=== PATIENT | male | born 1990 | race African-American/Black ===

== ENCOUNTER 2019-10-30 13:54 | Emergency (ER) | payer OTHER ==
[~2019-10-30] VITALS: Ht 188 cm; Wt 79.4 kg
--- NOTE | 2019-10-30 13:55 | NUR ---
ED Nurse Note: pt walked in to ed for c/o sob x 2 weeks. sp02 96% in room air. denies cough. hr is 125 temp 98.4
[2019-10-30 13:56] VITALS: BP 116/66
--- NOTE | 2019-10-30 14:45 | NUR ---
ED Nurse Note: cxr being done at tent
--- NOTE | 2019-10-30 15:22 | NUR ---
ED Nurse Note: blood sample collected and sent to lab
--- NOTE | 2019-10-30 15:34 | NUR ---
ED Nurse Note: pt is sitting in chair, no acute distress is noted.
--- NOTE | 2019-10-30 15:56 | Emergency Room Report ---
History of Present Illness General Chief Complaint: Dyspnea/Respdistress Source: Patient Present Illness HPI 29-year-old male presents to the emergency department complaining of feeling short of breath x2 weeks. Patient describes his symptoms primarily in the throat and describes having feeling of throat swelling. Patient reports in the past he has had numerous episodes of tonsillitis to the point where he was recommended to have them removed. Patient denies fevers, chills, cough, wheezing or sore throat. Patient denies swelling of the lips or tongue. He denies rashes. Patient reports he notices his symptoms primarily at night. He denies mucus production. Patient denies inability to tolerate his own secretions or swallow food. Patient denies any other aggravating or relieving factors. Denies CP, Palpitations, LOC, AMS, dizziness, Changes in Vision, Sensation, paresthesias, or a sudden severe headache. Denies asthma or COPD. reports smoking THC regularly but none today. Denies recent travel. Denies contact with persons who have tested positive for or are under investigation/ quarantine for COVID-19. Allergies: Coded Allergies: No Known Allergies (Unverified , 10/30/19) COVID-19 Screening Contact w/high risk pt: No Recent Travel to affected area: No Experienced COVID-19 symptoms?: Yes COVID-19 symptoms experienced: Shortness of Breath COVID-19 Testing performed REGISTERED NURSE CARDIAC: No Patient History Past Medical History: see triage record Past Surgical History: none Pertinent Family History: none Social History: Reports: smoking - THC, drug use - THC Reviewed Nursing Documentation: PMH: Agreed; PSxH: Agreed Nursing Documentation-PMH Past Medical History: No Stated History Review of Systems All Other Systems: negative except mentioned in HPI Physical Exam Vital Signs Date Time Temp Pulse Resp B/P (MAP) Pulse Ox O2 Delivery O2 Flow Rate FiO2 10/30/19 13:49 98.4 125 19 116/66 (83) 96 Room Air Sp02 EP Interpretation: reviewed, normal General Appearance: well appearing, no apparent distress - does not appear anxious or with increased respiratory effort., alert, GCS 15, non-toxic Head: normocephalic, atraumatic Eyes: bilateral eye normal inspection, bilateral eye PERRL ENT: hearing grossly normal, normal pharynx, no angioedema, normal voice, uvula midline, tonsillar swelling - no exudates, no erythema or petechiae, other - no swelling of the lips or tongue Neck: full range of motion, other - no stridor Respiratory: chest non-tender, lungs clear, normal breath sounds, no respiratory distress, no accessory muscle use, no wheezing, speaking full sentences Cardiovascular #1: regular rate, rhythm, normal capillary refill, tachycardia Musculoskeletal: back normal, normal range of motion, gait/station normal, non- tender Neurologic: alert, motor strength/tone normal, oriented x3, sensory intact, responsive, speech normal Psychiatric: judgement/insight normal Skin: normal color, normal inspection Lymphatic: no adenopathy Medical Decision Making PA Attestation Dr. Loya is my supervising Physician whom patient management has been discussed with. Diagnostic Impression: Primary Impression: Throat discomfort Additional Impressions: Tachycardia Shortness of breath ER Course 29-year-old male presents to the emergency department complaining of feeling short of breath x2 weeks. Patient describes his symptoms primarily in the throat and describes having feeling of throat swelling. Patient reports in the past he has had numerous episodes of tonsillitis to the point where he was recommended to have them removed. Patient denies fevers, chills, cough, wheezing or sore throat. Patient denies swelling of the lips or tongue. He denies rashes. Patient reports he notices his symptoms primarily at night. He denies mucus production. Patient denies inability to tolerate his own secretions or swallow food. Patient denies any other aggravating or relieving factors. Denies CP, Palpitations, LOC, AMS, dizziness, Changes in Vision, Sensation, paresthesias, or a sudden severe headache. Denies asthma or COPD. reports smoking THC regularly but none today. Denies recent travel. Denies contact with persons who have tested positive for or are under investigation/ quarantine for COVID-19. Ddx considered but are not limited to IN, PE, atelectasis, CHF, asthma, anxiety , Bronchitis, allergic reaction, epiglottitis, throat FB, COVID-19,hyper- ventilation syndrome, pneumonia, costochondritis, chest wall pain, just to name a few. Vital signs: are WNL, pt. is afebrile H&PE are most consistent with No acute pulmonary or cardiac causes at this time patient is in no acute distress his oxygen saturation is 94%. The patient is not in any respiratory distress at this time ORDERS: -EKG: Sinus Tach: 127 BPM beats per minute, no acute ST changes -D-Dimer: Negative - CBC: WNL , no elevated wbc's. -BMP: WNL -Troponin: 0.00 ED INTERVENTIONS: -Prednisone 60mg PO DISCHARGE: At this time pt. is stable for d/c to home. s. Will provide printed patient care instructions, and any necessary prescriptions. Care plan and follow up instructions have been discussed with the patient prior to discharge. Labs Test 10/30/19 15:13 10/30/19 16:12 D-Dimer 0.30 mg/L FEU (0.00-0.49) White Blood Count 2.8 K/UL (4.8-10.8) Red Blood Count 4.15 M/UL (4.70-6.10) Hemoglobin 11.9 G/DL (14.2-18.0) Hematocrit 37.6 % (42.0-52.0) Mean Corpuscular Volume 90 FL (80-99) Mean Corpuscular Hemoglobin 28.7 PG (27.0-31.0) Mean Corpuscular Hemoglobin Concent 31.8 G/DL (32.0-36.0) Red Cell Distribution Width 12.4 % (11.6-14.8) Platelet Count 223 K/UL (150-450) Mean Platelet Volume 8.0 FL (6.5-10.1) Neutrophils (%) (Auto) % (45.0-75.0) Lymphocytes (%) (Auto) % (20.0-45.0) Monocytes (%) (Auto) % (1.0-10.0) Eosinophils (%) (Auto) % (0.0-3.0) Basophils (%) (Auto) % (0.0-2.0) Differential Total Cells Counted 100 Neutrophils % (Manual) 45 % (45-75) Lymphocytes % (Manual) 33 % (20-45) Monocytes % (Manual) 18 % (1-10) Eosinophils % (Manual) 4 % (0-3) Basophils % (Manual) 0 % (0-2) Band Neutrophils 0 % (0-8) Platelet Estimate Adequate Platelet Morphology Normal Red Blood Cell Morphology Normal Prothrombin Time 11.9 SEC (9.30-11.50) Prothromb Time International Ratio 1.1 (0.9-1.1) Activated Partial Thromboplast Time 27 SEC (23-33) Sodium Level 138 MMOL/L (136-145) Potassium Level 4.3 MMOL/L (3.5-5.1) Chloride Level 102 MMOL/L (98-107) Carbon Dioxide Level 29 MMOL/L (21-32) Anion Gap 8 mmol/L (5-15) Blood Urea Nitrogen 8 mg/dL (7-18) Creatinine 1.0 MG/DL (0.55-1.30) Estimat Glomerular Filtration Rate > 60 mL/min (>60) Glucose Level 105 MG/DL (74-106) Calcium Level 9.1 MG/DL (8.5-10.1) Troponin I 0.000 ng/mL (0.000-0.056) EKG Diagnostic Results EP Interpretation: Dr. Loya Rate: tachycardiac - 127 bpm Rhythm: NSR ST Segments: no acute changes ASA given to the pt in ED: No PA Scribe Text This Interpretation was scribed by NAKUL Jean. Chest X-Ray Diagnostic Results Chest X-Ray Diagnostic Results : Chest X-Ray Ordered: Yes # of Views/Limited/Complete: 1 View Indication: Shortness of Breath EP Interpretation: Yes PA Xray: Interpretation reviewed, by supervising MD, and agrees with findings. Interpretation: no consolidation, no effusion, no pneumothorax, no acute cardiopulmonary disease Impression: No acute disease Electronically Signed by: Mila Jean PA-C Last Vital Signs Date Time Temp Pulse Resp B/P (MAP) Pulse Ox O2 Delivery O2 Flow Rate FiO2 10/30/19 14:59 116 18 94 Room Air 10/30/19 13:56 98.4 116/66 Disposition: HOME, SELF-CARE Scripts Naproxen* (NAPROXEN*) 500 Mg Tablet 500 MG ORAL TWICE A WEEK for 10 Days, #20 TAB 0 Refills Prov: Mila Jean 10/30/19 Prednisone* (PREDNISONE*) 20 Mg Tablet 20 MG ORAL DAILY for 3 Days, #3 TAB 0 Refills Prov: Mila Jean 10/30/19 Referrals: NON PHYSICIAN (PCP) Patient Instructions: Medical Screening Exam, Shortness of Breath, [id number] Mila Jean October 30, 2019 15:56
--- NOTE | 2019-10-30 16:15 | Diagnostic Imaging Report ---
Indication: Shortness of breath Technique: XRAY Chest 1v Comparison: None Findings: Heart size and mediastinal contours are within normal limits for AP technique. There is no focal airspace consolidation, pneumothorax or pleural effusion. Osseous structures demonstrate no acute abnormality. Impression: No radiographic evidence of acute cardiopulmonary disease.
--- NOTE | 2019-10-30 16:21 | NUR ---
ED Nurse Note: additional blood sample sent to lab.
[2019-10-30 16:35] LABS: HEMATOCRIT 37.6 % (42.0-52.0); HEMOGLOBIN 11.9 G/DL (14.2-18.0); MEAN CORPUSCULAR VOLUME 90 FL (80-99); PLATELET COUNT 223 K/UL (150-450); RED BLOOD COUNT 4.15 M/UL (4.70-6.10); RED CELL DISTRIBUTION WIDTH 12.4 % (11.6-14.8); WHITE BLOOD COUNT 2.8 K/UL (4.8-10.8)
[2019-10-30 16:40] LABS: INR 1.1 (0.9-1.1)
[2019-10-30 16:51] LABS: ANION GAP 8 mmol/L (5-15); BLOOD UREA NITROGEN 8 mg/dL (7-18); CALCIUM 9.1 MG/DL (8.5-10.1); CARBON DIOXIDE 29 MMOL/L (21-32); CHLORIDE 102 MMOL/L (98-107); POTASSIUM 4.3 MMOL/L (3.5-5.1); SODIUM 138 MMOL/L (136-145)
[2019-10-30] MEDS ORDERED: PREDNISONE20 MG ORAL (17:03)
[2019-10-30] MEDS ORDERED: NAPROXEN500 M2 ORAL (17:03)
[2019-10-30 17:11] VITALS: BP 120/64
--- NOTE | 2019-10-30 17:11 | NUR ---
ER DISCHARGE NOTE: Patient is cleared to be discharged per ERMD, pt is aox4, on room air, with stable vital signs. pt was given dc and prescription instructions, pt was able to verbalize understanding, pt id band removed without complications. pt is able to ambulate with steady gait. pt took all belongings.
== END 2019-10-30 17:11 | disposition home or self-care (01) ==
LOC: EDBD 13:54 → EMR 14:05
DX: R06.02 Shortness of breath (principal); R07.0 Pain in throat; R00.0 Tachycardia, unspecified; F12.90 Cannabis use, unspecified, uncomplicated
CPT/HCPCS: 36415; 71045; 80048; 84484; 85007; 85025; 85379; 85610; 85730; 93005; J7512; Z7502; 99284

== ENCOUNTER 2019-11-26 03:37 | Emergency (ER) | payer OTHER ==
[~2019-11-26] VITALS: Ht 190.5 cm; Wt 77.1 kg
[~2019-11-26 03:37] MED LIST: NAPROXEN500 M2 ORAL; PREDNISONE20 MG ORAL
[2019-11-26] MEDS ORDERED: Clindamycin 150mg cap ORAL STA (03:52)
[2019-11-26 03:54] VITALS: BP 128/82
[2019-11-26] MEDS ORDERED: Lidocaine 2% Visc 15ml soln ORAL ONE (04:00)
--- NOTE | 2019-11-26 04:01 | Emergency Room Report ---
History of Present Illness General Chief Complaint: Sore Throat Source: Patient Present Illness HPI Patient is a 29-year-old male past medical history of recurrent tonsillitis who presents to the ER complaining of throat pain. He states that the last episode began a month ago. Patient was seen here and given a prescription for prednisone as well as Motrin. Patient states he felt better for 2 weeks but 2 weeks ago started having pain on the right side of his throat again. He states that it is painful to swallow. I looked at the triage note where it says that he has difficulty swallowing but he states that he is still able to swallow but that it is very painful when he swallows. He denies any drooling. He denies any neck stiffness or rash. He denies any fever or chills. Patient states that he has been told that he needs to have his tonsils removed due to this. Allergies: Coded Allergies: No Known Allergies (Unverified , 10/30/19) COVID-19 Screening Contact w/high risk pt: No Recent Travel to affected area: No Experienced COVID-19 symptoms?: Yes COVID-19 symptoms experienced: Shortness of Breath COVID-19 Testing performed NEUROPATHOLOGIST: No Patient History Reviewed Nursing Documentation: PMH: Agreed; PSxH: Agreed Nursing Documentation-PMH Past Medical History: No Stated History Review of Systems All Other Systems: negative except mentioned in HPI Physical Exam Vital Signs Date Time Temp Pulse Resp B/P (MAP) Pulse Ox O2 Delivery O2 Flow Rate FiO2 11/26/19 03:47 99.0 87 128/82 (97) 98 Room Air Sp02 EP Interpretation: reviewed, normal General Appearance: no apparent distress, alert, GCS 15, non-toxic Head: normocephalic, atraumatic Eyes: bilateral eye normal inspection, bilateral eye PERRL ENT: no angioedema, other - Tonsillar swelling with exudate right sided very small peritonsillar abscess with no peritonsillar cellulitis. Neck: full range of motion, no meningismus, supple/symm/no masses Respiratory: chest non-tender, lungs clear, normal breath sounds, speaking full sentences Cardiovascular #1: regular rate, rhythm, no edema Gastrointestinal: normal bowel sounds, non tender, soft, non-distended, no guarding, no rebound Rectal: deferred Musculoskeletal: normal range of motion Neurologic: alert, motor strength/tone normal, oriented x3, sensory intact, responsive, speech normal Psychiatric: no suicidal/homicidal ideation Skin: no rash Lymphatic: no adenopathy Medical Decision Making Diagnostic Impression: Primary Impression: Acute recurrent tonsillitis Additional Impression: Peritonsillar abscess ER Course Patient has recurrent history of tonsillitis. Patient was seen a month ago and given steroids as well as Motrin. Patient was given a handful of pills in our emergency room which include clindamycin 300 mg, 800 mg of oral Motrin and 10 mg of Decadron. Patient was able to swallow without any difficulty. I discussed doing a peritonsillar abscess drainage with the patient. He states that he does not want that done at this time. He states that he is always treated with antibiotics and that he always improves. I explained to the patient that the abscess is currently very small. But that if he has any difficulty swallowing, drooling, changes in his voice or any worsening of symptoms he should return immediately to the emergency room for drainage of the abscess. Patient is still declining drainage at time of discharge. After discussing risks and benefits of further diagnostics, treatment plans, as well as indications for and risks of admission, the patient is agreeable to being discharged home. I have explained that their evaluation and treatment in the emergency department today is an important step towards them achieving better health but that their evaluation today is not intended to replace further evaluation and treatment by a physician in their local clinic. I have explained that while the current findings suggest no immediate life threatening emergency they will require further evaluation and treatment by a physician of their choice in their area. They understand that it will be necessary for them to review the final reports of their ED visit with their clinic physician. We have reviewed indications for return to the Emergency Department. I have explained that additional time may need to pass and/or additional testing as an outpatient may be necessary before a definitive diagnosis can be made. They tell me they are willing to follow up as instructed within the timeframe I recommend. They appear to understand what we discussed. Additionally they understand that if they are unable to be seen by an outpatient physician they are welcome, and in fact should, return to the Emergency Department for a repeat evaluation. The patient is stable at time of discharge. Last Vital Signs Date Time Temp Pulse Resp B/P (MAP) Pulse Ox O2 Delivery O2 Flow Rate FiO2 11/26/19 03:54 99.0 87 128/82 98 Room Air Disposition: HOME, SELF-CARE Condition: Stable Scripts Tetracaine/Benzocaine/Butamben (Cetacaine Alto) 20 Gm Alto 1 SPRAY TOPIC PRN for pain for 7 Days, SPRAY Prov: Lisa Tompkins M.D. 11/26/19 Dexamethasone* (DECADRON*) 2 Mg Tablet 10 MG PO DAILY for 3 Days, TAB Prov: Lisa Tompkins M.D. 11/26/19 Ibuprofen* (MOTRIN*) 600 Mg Tablet 600 MG ORAL Q6H PRN for For Pain, #30 TAB 0 Refills Prov: Lisa Tompkins M.D. 11/26/19 Clindamycin Hcl (CLINDAMYCIN HCL) 300 Mg Capsule 300 MG ORAL THREE TIMES A DAY for 10 Days, CAP Prov: Lisa Tompkins M.D. 11/26/19 Referrals: NON PHYSICIAN (PCP) Additional Instructions: The patient was provided with discharge instructions, notified to follow-up with a primary care doctor and or specialist in the next 24-48 hours, and to return to the ED if they have worsening of their symptoms. Please note that this report is being documented using [employer] technology. This can lead to erroneous entry secondary to incorrect interpretation by the dictating instrument. Lisa Tompkins M.D. Nov 26, 2019 04:01
[2019-11-26] MEDS ORDERED: CETACAINE TOPIC (04:10)
[2019-11-26] MEDS ORDERED: IBUPROFEN600 M1 ORAL (04:10)
[2019-11-26] MEDS ORDERED: DEXAMETHASONE2 MG PO (04:10)
[2019-11-26] MEDS ORDERED: CLINDAMYCIN HC300 MG ORAL (04:10)
[2019-11-26 04:14] VITALS: BP 128/82
== END 2019-11-26 04:15 | disposition home or self-care (01) ==
LOC: EMR 03:47
DX: J36 Peritonsillar abscess (principal)
CPT/HCPCS: J8540; Z7502; 99283

== ENCOUNTER 2020-03-04 16:53 | Emergency (ER) | payer OTHER ==
[~2020-03-04] VITALS: Ht 188 cm; Wt 77.1 kg
[~2020-03-04 16:53] MED LIST changes: +CETACAINE TOPIC; +CLINDAMYCIN HC300 MG ORAL; +DEXAMETHASONE2 MG PO; +IBUPROFEN600 M1 ORAL
[2020-03-04 17:17] VITALS: BP 110/72
--- NOTE | 2020-03-04 17:21 | Emergency Room Report ---
History of Present Illness General Chief Complaint: Neck Pain Source: Patient Present Illness Allergies: Coded Allergies: No Known Allergies (Unverified , 10/30/19) COVID-19 Screening Contact w/high risk pt: No Recent Travel to affected area: No Experienced COVID-19 symptoms?: No COVID-19 symptoms experienced: Shortness of Breath COVID-19 Testing performed DISABILITY REPRESENTATIVE: No Nursing Documentation-PMH Past Medical History: No Stated History Hx Cardiac Problems: No Hx Hypertension: No Hx Pacemaker: No Hx Asthma: No Hx COPD: No Hx Diabetes: No Hx Cancer: No Hx Gastrointestinal Problems: No Hx Dialysis: No History Of Psychiatric Problem: No Hx Neurological Problems: No Hx Cerebrovascular Accident: No Hx Seizures: No Physical Exam Vital Signs Date Time Temp Pulse Resp B/P (MAP) Pulse Ox O2 Delivery O2 Flow Rate FiO2 03/04/20 16:56 98.1 110 18 110/72 (85) Room Air Medical Decision Making PA Attestation Dr. Fink is my supervising Physician whom patient management has been discussed with. Diagnostic Impression: Primary Impression: Lymphadenopathy of right cervical region Additional Impressions: Pancytopenia Abnormal weight loss Labs Test 03/04/20 17:30 White Blood Count 3.4 K/UL (4.8-10.8) Red Blood Count 4.20 M/UL (4.70-6.10) Hemoglobin 12.1 G/DL (14.2-18.0) Hematocrit 36.6 % (42.0-52.0) Mean Corpuscular Volume 87 FL (80-99) Mean Corpuscular Hemoglobin 28.8 PG (27.0-31.0) Mean Corpuscular Hemoglobin Concent 33.1 G/DL (32.0-36.0) Red Cell Distribution Width 11.7 % (11.6-14.8) Platelet Count 220 K/UL (150-450) Mean Platelet Volume 7.0 FL (6.5-10.1) Neutrophils (%) (Auto) % (45.0-75.0) Lymphocytes (%) (Auto) % (20.0-45.0) Monocytes (%) (Auto) % (1.0-10.0) Eosinophils (%) (Auto) % (0.0-3.0) Basophils (%) (Auto) % (0.0-2.0) Differential Total Cells Counted 100 Neutrophils % (Manual) 56 % (45-75) Lymphocytes % (Manual) 22 % (20-45) Monocytes % (Manual) 19 % (1-10) Eosinophils % (Manual) 1 % (0-3) Basophils % (Manual) 2 % (0-2) Band Neutrophils 0 % (0-8) Platelet Estimate Adequate Platelet Morphology Normal Red Blood Cell Morphology Normal Prothrombin Time 11.5 SEC (9.30-11.50) Prothromb Time International Ratio 1.0 (0.9-1.1) Activated Partial Thromboplast Time 32 SEC (23-33) Sodium Level 134 MMOL/L (136-145) Potassium Level 3.5 MMOL/L (3.5-5.1) Chloride Level 97 MMOL/L (98-107) Carbon Dioxide Level 27 MMOL/L (21-32) Anion Gap 10 mmol/L (5-15) Blood Urea Nitrogen 16 mg/dL (7-18) Creatinine 1.1 MG/DL (0.55-1.30) Estimat Glomerular Filtration Rate > 60 mL/min (>60) Glucose Level 128 MG/DL (74-106) Calcium Level 9.1 MG/DL (8.5-10.1) Last Vital Signs Date Time Temp Pulse Resp B/P (MAP) Pulse Ox O2 Delivery O2 Flow Rate FiO2 03/04/20 17:17 98.1 18 110/72 Room Air 03/04/20 16:56 110 Disposition: HOME, SELF-CARE Condition: Stable Referrals: NON PHYSICIAN (PCP) Additional Instructions: Take medications as directed. Follow up with a Primary Care Provider in within 3 days, even if your symptoms have resolved. Make the soonest appointment you can get, as you require biopsy, and additional lab testing This is very important to determine if the cause of your symptoms are related to Leukemia or Lymphoma or another blood cell disorder. Take the provided copy of your official radiology reports and lab results with you to your appointments and discuss them with your healthcare professional. --Please review list of primary care clinics, if you do not already have a primary care provider, Anticipate a call from me personally next week to confirm that you have made primary care contact. Return sooner to ED if new symptoms occur, or current symptoms become worse. - Please note that this Emergency Department Report was dictated using Dragon refrigerator repair technician technology software, occasionally this can lead to erro neous entry secondary to interpretation by the dictation equipment. Mila Jean Mar 04, 2020 17:21
[2020-03-04] MEDS ORDERED: Omnipaque-300 100ml vial INJ ONE (17:30)
[2020-03-04 17:46] LABS: HEMATOCRIT 36.6 % (42.0-52.0); HEMOGLOBIN 12.1 G/DL (14.2-18.0); MEAN CORPUSCULAR VOLUME 87 FL (80-99); PLATELET COUNT 220 K/UL (150-450); RED CELL DISTRIBUTION WIDTH 11.7 % (11.6-14.8); WHITE BLOOD COUNT 3.4 K/UL (4.8-10.8)
[2020-03-04 17:55] LABS: ANION GAP 10 mmol/L (5-15); BLOOD UREA NITROGEN 16 mg/dL (7-18); CALCIUM 9.1 MG/DL (8.5-10.1); CARBON DIOXIDE 27 MMOL/L (21-32); CHLORIDE 97 MMOL/L (98-107); CREATININE 1.1 MG/DL (0.55-1.30); POTASSIUM 3.5 MMOL/L (3.5-5.1); SODIUM 134 MMOL/L (136-145)
--- NOTE | 2020-03-04 19:24 | Diagnostic Imaging Report ---
EXAM: CT Neck With Intravenous Contrast CLINICAL HISTORY: PAIN TECHNIQUE: Axial computed tomography images of the neck with intravenous contrast. CTDI is 175 mGy and DLP is 460 mGy-cm. One or more of the following dose reduction techniques were used: automated exposure control, adjustment of the mA and/or kV according to patient size, use of iterative reconstruction technique. COMPARISON: No relevant prior studies available. FINDINGS: Oropharynx: Prominent right palatine tonsil compared with the left without specific findings to suggest abscess or inflammatory phlegmon, recommend direct visualization to further characterize. Hypopharynx: Unremarkable. Larynx: Unremarkable. Normal epiglottis. Trachea: Unremarkable. Retropharyngeal space: Unremarkable. Submandibular/parotid glands: Unremarkable. Glands are normal in size. Thyroid: Unremarkable. No enlarged or calcified nodules. Bones/joints: No acute fracture. Soft tissues: Unremarkable. Vasculature: No acute findings. Lymph nodes: Extensive bulky right and mild left cervical lymphadenopathy extending from level IIb-level IV, predominantly subjacent to the right SCM. Largest nodes right level IIb-III measuring 3.4 x 2.8 x 2.4 cm and III measuring 4. 2 x 2 x 3.4 cm. Scattered less prominent left cervical chain nodes measure up to 1.8 x 1.2 x 2.5 cm. Lung apices: Unremarkable as visualized. IMPRESSION: 1. Extensive bulky right and mild left cervical lymphadenopathy extending from level IIb-level IV, predominantly subjacent to the right SCM. 2. These findings are concerning for possible lymphoproliferative disorder. 3. Recommend image guided biopsy of large right-sided lymph nodes. 4. Prominent right palatine tonsil compared with the left without specific findings to suggest abscess or inflammatory phlegmon, recommend direct visualization to further characterize. <MYCVCSECTION> Communications: 03/04/20 19:21 Call Doctor Regarding Other, called Mila MOTA on 03/04 19:19 (-07:00)
[2020-03-04 20:20] VITALS: BP 115/69
== END 2020-03-04 20:20 | disposition home or self-care (01) ==
LOC: EMR 17:14
DX: R59.1 Generalized enlarged lymph nodes (principal); D61.818 Other pancytopenia; R63.4 Abnormal weight loss; Z68.21 Body mass index [BMI] 21.0-21.9, adult
CPT/HCPCS: 36415; 70491; 80048; 85007; 85025; 85610; 85730; 86850; 86900; 86901; Q9967; Z7502; 99284

== ENCOUNTER 2020-05-13 12:13 | Emergency (ER) | payer OTHER ==
[~2020-05-13] VITALS: Ht 188 cm; Wt 79.8 kg
[2020-05-13 12:44] VITALS: BP 117/62
--- NOTE | 2020-05-13 12:45 | NUR ---
ED Nurse Note: Pt ambulated to ED from home d/t severe lower back pain, fever, chills that has been going on for almost a week. Pt is AOx4, calm and cooperative to care. Pt's VSS, on RA, 103.3 temp at triage. Pt was placed on bed and gown; hooked to telemetry monitor HR's going on to 99-105BPM. Doors kept closed at all times. Will continue to monitor pt.
[2020-05-13 13:00] VITALS: BP 117/62
[2020-05-13] MEDS ORDERED: Acetaminophen 500mg (ES) tab ORAL ONE (13:00)
[2020-05-13] MEDS ORDERED: Ketorolac 30mg Inj IV ONE (13:00)
--- NOTE | 2020-05-13 13:39 | Emergency Room Report ---
History of Present Illness General Chief Complaint: Flu Like Symptoms Source: Patient Present Illness HPI Patient is a 29-year-old male denies any significant past medical history who presents to the ER complaining of low back pain for the past several days. Patient complains of chills and feeling cold. Patient denies any sick contacts. He denies any chest pain or shortness of breath. He denies any recent travel. He denies any cough. He denies any abdominal pain, nausea or vomiting. He denies any rash. She denies any neck stiffness. He denies any changes to his bowel or bladder habits. He denies any history of IV drug use. Allergies: Coded Allergies: No Known Allergies (Unverified , 10/30/19) COVID-19 Screening Contact w/high risk pt: No Recent Travel to affected area: No Experienced COVID-19 symptoms?: Yes COVID-19 symptoms experienced: Shortness of Breath COVID-19 Testing performed NUTRITION INTERN: No Patient History Reviewed Nursing Documentation: PMH: Agreed; PSxH: Agreed Nursing Documentation-PMH Hx Cardiac Problems: No Hx Hypertension: No Hx Pacemaker: No Hx Asthma: No Hx COPD: No Hx Diabetes: No Hx Cancer: No Hx Gastrointestinal Problems: No Hx Dialysis: No Hx Neurological Problems: No Hx Cerebrovascular Accident: No Hx Seizures: No Review of Systems All Other Systems: negative except mentioned in HPI Physical Exam Vital Signs Date Time Temp Pulse Resp B/P (MAP) Pulse Ox O2 Delivery O2 Flow Rate FiO2 05/13/20 12:44 103.3 143 24 117/62 (80) 96 Room Air Sp02 EP Interpretation: reviewed, normal General Appearance: alert, GCS 15, non-toxic, mild distress Head: normocephalic, atraumatic Eyes: bilateral eye normal inspection, bilateral eye PERRL ENT: hearing grossly normal, normal pharynx, no angioedema, normal voice Neck: full range of motion, no meningismus, supple/symm/no masses Respiratory: no retraction, other - Mildly tachypneic Cardiovascular #1: tachycardia Gastrointestinal: normal bowel sounds, non tender, soft, non-distended, no guarding, no rebound Rectal: deferred, other - No saddle anesthesia Musculoskeletal: normal range of motion, no calf tenderness, no lower extremity edema, other - Lower lumbar tenderness to palpation with no step-offs and normal range of motion Neurologic: waybill clerk III-XII nml as tested, oriented x3 Psychiatric: no suicidal/homicidal ideation Skin: no rash Lymphatic: no adenopathy Procedures Critical Care Time Critical Care Time Total critical care time: Approximately 35 minutes. Due to a high probability of clinically significant, life threatening deterioration, the patient required my highest level of preparedness to intervene emergently and I personally spent this critical care time directly and personally managing the patient. This critical care time included obtaining a history; examining the patient; pulse oximetry; ordering and review of studies; arranging urgent treatment with development of a management plan; evaluation of patient's response to treatment; frequent reassessment; and, discussions with other providers.This critical care time was performed to assess and manage the high probability of imminent, life- threatening deterioration that could result in multi-organ failure. It was exclusive of separately billable procedures and treating other patients and teaching time. Please see MDM section and the rest of the note for further information on patient assessment and treatment. Medical Decision Making Diagnostic Impression: Primary Impression: Pancytopenia Additional Impressions: Influenza-like symptoms Hyponatremia ER Course Patient presents with lower back pain. Patient is febrile and tachycardic. Patient is pancytopenic and hyponatremic with sodium of 123. Patient's initial COVID-19 PCR is negative. Patient is pending MRI of the lumbar spine to rule out any acute spinal pathology as that is where his pain is. He is neurologically intact. Patient is also pending CT abdomen pelvis to rule out any intra-abdominal pathology. Patient will require admission. Patient pending insurance approval and radiologic studies. Patient signed out to oncoming physician Dr. Johnson at 1400. EKG Diagnostic Results Troponin ordered: Yes When was troponin ordered?: May 13, 2020 EKG Time: 13:27 EP Interpretation: Lisa Tompkins MD Rate: tachycardiac - 116 bpm Rhythm: other - Sinus tachycardia ST Segments: no acute changes ASA given to the pt in ED: No Rhythm Strip Diag. Results Rhythm Strip Time: 13:44 EP Interpretation: yes - Lisa Tompkins MD Rate: 113 bpm Rhythm: no PVC's, no ectopy, other - Sinus tachycardia Chest X-Ray Diagnostic Results Chest X-Ray Diagnostic Results : Chest X-Ray Ordered: Yes # of Views/Limited/Complete: 1 View Indication: Other - tachycardia EP Interpretation: Yes Interpretation: no consolidation, no effusion, no acute cardiopulmonary disease Impression: No acute disease Electronically Signed by: Lisa Tompkins MD Last Vital Signs Date Time Temp Pulse Resp B/P (MAP) Pulse Ox O2 Delivery O2 Flow Rate FiO2 05/13/20 12:44 103.3 143 24 117/62 (80) 96 Room Air Condition: Critical Signed Out To: Oncoming EDMD at 1400 Additional Instructions: Please note that this report is being documented using [employer] technology. This can lead to erroneous entry secondary to incorrect interpretation by the dictating instrument. Lisa Tompkins M.D. May 13, 2020 13:39
[2020-05-13 13:52] LABS: HEMATOCRIT 31.9 % (42.0-52.0); HEMOGLOBIN 10.3 G/DL (14.2-18.0); MEAN CORPUSCULAR VOLUME 84 FL (80-99); PLATELET COUNT 141 K/UL (150-450); RED BLOOD COUNT 3.78 M/UL (4.70-6.10); RED CELL DISTRIBUTION WIDTH 17.8 % (11.6-14.8)
[2020-05-13 13:53] LABS: ANION GAP 8 mmol/L (5-15); BLOOD UREA NITROGEN 19 mg/dL (7-18); CALCIUM 8.2 MG/DL (8.5-10.1); CARBON DIOXIDE 25 MMOL/L (21-32); CHLORIDE 90 MMOL/L (98-107); CREATININE 1.3 MG/DL (0.55-1.30); POTASSIUM 3.6 MMOL/L (3.5-5.1); SODIUM 123 MMOL/L (136-145)
[2020-05-13] MEDS ORDERED: Gadavist 7.5mMol/7.5ml vial IV PRN (14:00)
[2020-05-13 14:05] LABS: ALANINE AMINOTRANSFERASE 35 U/L (12-78); ALBUMIN 2.3 G/DL (3.4-5.0); ALBUMIN/GLOBULIN RATIO 0.3 (1.0-2.7); ALKALINE PHOSPHATASE 149 U/L (46-116); ASPARTATE AMINO TRANSFERASE 68 U/L (15-37); BILIRUBIN,TOTAL 1.1 MG/DL (0.2-1.0); CREATINE KINASE 62 U/L (26-308)
[2020-05-13 14:07] LABS: BILIRUBIN,DIRECT 0.6 MG/DL (0.0-0.3)
[2020-05-13 14:18] LABS: INR 1.3 (0.9-1.1)
--- NOTE | 2020-05-13 16:34 | Diagnostic Imaging Report ---
Indication: Low back pain, fever, chills Technique: Sagittal T1, sagittal T2 PROPELLER, sagittal STIR, axial T2 FRFSE, axial T1 pre and postcontrast axial and sagittal T1 fat-saturated images of the lumbar spine Comparison: none Findings: Bony alignment is normal. Vertebral body heights are preserved. Disc spaces are preserved. Disc signal is normal. Vertebral marrow signal is normal. No significant disc bulge or protrusion, spinal stenosis, or neural foraminal stenosis. No unusual contrast enhancement Impression: Negative
--- NOTE | 2020-05-13 16:50 | Diagnostic Imaging Report ---
Indication: Shortness of breath Technique: One view of the chest Comparison: 10/30/2019 Findings: Lungs and pleural spaces are clear. Heart size is normal. No significant change Impression: No acute process
--- NOTE | 2020-05-13 17:02 | Diagnostic Imaging Report ---
Indication: Low back pain for the last several days, chills, feeling cold Technique: Spiral acquisitions obtained through the abdomen and pelvis. No oral contrast utilized, per emergency room physician request No IV contrast utilized, per referring physician request.. Multiplanar reconstructions were generated. Total dose length product 204 mGycm. CTDIvol(s) 3 mGy. Dose reduction achieved using automated exposure control Comparison: None Findings: Lack of IV contrast limits assessment of the solid organs. A small amount of excreted contrast from recent contrast MRI is seen within the bilateral renal collecting systems and ureters. This precludes confident exclusion of urinary stone disease. However, there is no evidence of hydronephrosis. No gross renal parenchymal mass or cyst demonstrated. The liver, gallbladder, bile ducts, pancreas spleen, adrenals are unremarkable. There are numerous prominent but not frankly enlarged upper pericaval, periaortic, and mesenteric root lymph nodes. No pelvic mass or adenopathy. Lack of enteric contrast limits assessment of the GI tract. What is probably a normal appendix is demonstrated. No findings to suggest acute appendicitis are evident. No small bowel distention. No free or loculated peritoneal gas or fluid is evident. The distal esophagus, stomach, duodenum are unremarkable. The included lung bases are clear. The bones are unremarkable Impression: Limited assessment of the GI tract, due to lack of enteric contrast administration No definite acute process Contrast from prior MRI within the renal collecting systems and ureters precludes exclusion of urinary stone disease. However, there is no evidence of obstructive uropathy Nonspecific prominent and numerous although not frankly enlarged retroperitoneal and mesenteric root lymph nodes Otherwise essentially unremarkable exam The CT scanner at [facility] is accredited by the [employer] and the scans are performed using protocols designed to limit radiation exposure to as low as reasonably achievable to attain images of sufficient resolution adequate for diagnostic evaluation.
--- NOTE | 2020-05-13 17:34 | NUR ---
AMA: SEE AMA FORM. Pt states he feels better and doesn't want to be admitted and wants to go home. Pt is notified of risks by ERMD. IV is removed. Pt verbalizes understanding of leaving AMA and risks.
--- NOTE | 2020-05-17 14:51 | Cardiology Report ---
APPROVED REPORT EKG Measurement Heart [id number] NE [id number] <Conclusion> Sinus tachycardia Otherwise normal ECG
== END 2020-05-13 17:36 | disposition left against medical advice (07) ==
LOC: EDBEDREQ 14:04 → EMR 15:14 → CANBEDREQ 17:53
DX: D61.818 Other pancytopenia (principal); J11.1 Influenza due to unidentified influenza virus with other respiratory manifestations; E87.1 Hypo-osmolality and hyponatremia
CPT/HCPCS: 36415; 71045; 72158; 74176; 80053; 82248; 82550; 82728; 83615; 83735; 84484; 85007; 85025; 85379; 85610; 85730; 86140; 86710; 87040; 93005; 96361; 96374; A9585; J1885; J7030; U0002; Z7502; 99291